=== PATIENT | male | born 2000 | race Caucasian/White ===

== ENCOUNTER 2024-11-22 12:16 | Outpatient (AMB) | payer OTHER, SELFPAY ==
--- OUTSIDE RECORDS SUMMARY | 2024-11-22 12:20 | XMS_ITS | Encounter Summary ---
Author Organization [facility] Address [address] [place] [address] Phone Care Team Providers Care Cut Press Operator Name Role Phone Jossie Shoemaker DO Primary Care Provider [phone] Encounter Details Date Type Department Care Team (Late st Contact Info) Description 05/22/2015 Documentation [facility] [address] [place], [place] [phone] Family Medicine, Physician [address] [place] [address] Social History Tobacco Use Types Packs/Day Years Used Date Smoking Tobacco: Never Assessed Sex and Gender Information Value Date Recorded Sex Assigned at Not on file Legal Sex Male 5:10 PM EDT Gender Identity Male 01/27/2023 1:24 PM EST Sexual Orientation Straight 01/27/2023 1: 24 PM EST documented as of this encounter Plan of Treatment Not on file documented as of this encounter Visit Diagnoses Not on filedocumented in this encounter Care Teams Cut Press Operator Relationship Specialty Start Date End Date Jossie Shoemaker DO [address] [place] [address] PCP - General 09/20/16 06/05/23 documented as of this encounter
--- OUTSIDE RECORDS SUMMARY | 2024-11-22 12:20 | XMS_ITS | Encounter Summary ---
Author Organization [facility] Address [address] [place] [address] Phone Care Team Providers Care Superintendent Transmission Name Role Phone Jossie Shoemaker DO Primary Care Provider [phone] Encounter Details Date Type Department Care Team (Late st Contact Info) Description 09/13/2015 Documentation [facility] [place] [facility] [address] [place], [place] [id number] Family Medicine, Physician [address] [place] [address] Social History Tobacco Use Types Packs/Day Years [...] on filedocumented in this encounter Care Teams Superintendent Transmission Relationship Specialty Start Date End Date Jossie Shoemaker DO [address] [place] [address] PCP - General 09/20/16 06/05/23 documented as of this encounter
--- OUTSIDE RECORDS SUMMARY | 2024-11-22 12:20 | XMS_ITS | Encounter Summary ---
Author Organization [facility] Address [address] [place] [address] Phone Care Team Providers Care Medical And Scientific Illustrator Name Role Phone Jossie Shoemaker DO Primary Care Provider [phone] Encounter Details Date Type Department Care Team (Late st Contact Info) Description 09/13/2015 Documentation [facility] [place] [address] [place], [place] [id number] Family Medicine, Physician [address] [place] [address] Social History Tobacco Use Types Packs/Day Years [...] on filedocumented in this encounter Care Teams Medical And Scientific Illustrator Relationship Specialty Start Date End Date Jossie Shoemaker DO [address] [place] [address] PCP - General 09/20/16 06/05/23 documented as of this encounter
--- OUTSIDE RECORDS SUMMARY | 2024-11-22 12:20 | XMS_ITS | Encounter Summary ---
Author Organization [facility] Address [address] [place] [address] Phone Care Team Providers Care Geriatric Nursing Assistant Name Role Phone Jossie Shoemaker DO Primary Care Provider [phone] Encounter Details Date Type Department Care Team (Late st Contact Info) Description 07/26/2016 Documentation [facility] [place] Family Medicine [address] [place], [place] [phone] Family Medicine, Physician [address] [place] [address] Social History Tobacco Use Types Packs/Day Years Used Date Smoking Tobacco: Never Comments:Never smoker Sex and Gender Information Value Date Recorded Sex Assigned at Not on file Legal Sex Male 5:10 PM EDT Gender Identity Male 01/27/2023 1:24 PM EST Sexual Orientation Straight 01/27/2023 1: 24 PM EST documented as of this encounter Plan of Treatment Not on file documented as of this encounter Visit Diagnoses Not on filedocumented in this encounter Care Teams Geriatric Nursing Assistant Relationship Specialty Start Date End Date Jossie Shoemaker DO 150 [place] [address] PCP - General 09/20/16 06/05/23 documented as of this encounter
--- OUTSIDE RECORDS SUMMARY | 2024-11-22 12:20 | XMS_ITS | Encounter Summary ---
Author Organization [facility] Address [address] [place] [address] Phone Care Team Providers Care Shrimp Trawler Name Role Phone Jossie Shoemaker DO Primary Care Provider [phone] Encounter Details Date Type Department Care Team (Late st Contact Info) Description 09/11/2015 Documentation [facility] [place] Family Medicine [address] [place], [place] [phone] Family Medicine, Physician [address] [place] [address] Social History Tobacco Use Types Packs/Day Years [...] on filedocumented in this encounter Care Teams Shrimp Trawler Relationship Specialty Start Date End Date Jossie Shoemaker DO 150 [place] [address] PCP - General 09/20/16 06/05/23 documented as of this encounter
--- OUTSIDE RECORDS SUMMARY | 2024-11-22 12:20 | XMS_ITS | Encounter Summary ---
Author Organization [facility] Address [address] [place] [address] Phone Care Team Providers Care Injection Mold Technician Name Role Phone Jossie Shoemaker DO Primary Care Provider [phone] Encounter Details Date Type Department Care Team (Late st Contact Info) Description 07/25/2016 Documentation [facility] [place] Family Medicine [address] [place], [place] [phone] Family Medicine, Physician [address] [place] [address] Social History Tobacco Use Types Packs/Day Years [...] on filedocumented in this encounter Care Teams Injection Mold Technician Relationship Specialty Start Date End Date Jossie Shoemaker DO [address] [facility] [place] [address] PCP - General 09/20/16 06/05/23 documented as of this encounter
--- OUTSIDE RECORDS SUMMARY | 2024-11-22 12:20 | XMS_ITS | Encounter Summary ---
Author Organization [facility] Address [address] [place] [address] Phone Care Team Providers Care Caramel Cutter Helper Name Role Phone Jossie Shoemaker DO Primary Care Provider [phone] Encounter Details Date Type Department Care Team (Late st Contact Info) Description 07/18/2011 Documentation [facility] [place] Family Medicine [address] [place], [place] [address] Family Medicine, Physician [address] [place] [address] Social History Tobacco Use Types Packs/Day Years [...] on filedocumented in this encounter Care Teams Caramel Cutter Helper Relationship Specialty Start Date End Date Jossie Shoemaker DO [address] [facility] [place] [address] PCP - General 09/20/16 06/05/23 documented as of this encounter
--- OUTSIDE RECORDS SUMMARY | 2024-11-22 12:20 | XMS_ITS | Encounter Summary ---
Author Organization [facility] Address [address] [place] [address] Phone Care Team Providers Care Engineering Executive Name Role Phone Jossie Shoemaker DO Primary Care Provider [phone] Encounter Details Date Type Department Care Team (Late st Contact Info) Description 02/21/2014 Documentation [facility] [place] Family Medicine [address] [place], [place] [phone] Family Medicine, Physician [address] [place] [address] Social History Tobacco Use Types Packs/Day Years [...] on filedocumented in this encounter Care Teams Engineering Executive Relationship Specialty Start Date End Date Jossie Shoemaker DO [address] [facility] [place] [address] PCP - General 09/20/16 06/05/23 documented as of this encounter
--- OUTSIDE RECORDS SUMMARY | 2024-11-22 12:20 | XMS_ITS | Encounter Summary ---
Author Organization [facility] Address [address] [place] [address] Phone Care Team Providers Care Staff Software Engineer Name Role Phone Jossie Shoemaker DO Primary Care Provider [phone] Encounter Details Date Type Department Care Team (Late st Contact Info) Description 05/22/2015 Documentation [facility] [place] [address] [place], [place] [phone] Family Medicine, Physician [address] [place] [address] Social History Tobacco Use Types Packs/Day Years [...] on filedocumented in this encounter Care Teams Staff Software Engineer Relationship Specialty Start Date End Date Jossie Shoemaker DO [address] [place] [address] PCP - General 09/20/16 06/05/23 documented as of this encounter
--- OUTSIDE RECORDS SUMMARY | 2024-11-22 12:20 | XMS_ITS | Encounter Summary ---
Author Organization [facility] Address [address] [place] [address] Phone Care Team Providers Care Universal Grinder Set Up Operator Name Role Phone Jossie Shoemaker DO Primary Care Provider [phone] Encounter Details Date Type Department Care Team (Late st Contact Info) Description 02/22/2014 Documentation [facility] [place] [address] [place], [place] [phone] Family Medicine, Physician [address] [place] [address] Social History Tobacco Use Types Packs/Day Years [...] on filedocumented in this encounter Care Teams Universal Grinder Set Up Operator Relationship Specialty Start Date End Date Jossie Shoemaker DO [address] [place] [address] PCP - General 09/20/16 06/05/23 documented as of this encounter
--- OUTSIDE RECORDS SUMMARY | 2024-11-22 12:20 | XMS_ITS | Encounter Summary ---
Author Organization [facility] Address [address] [place] [address] Phone Care Team Providers Care Manager Rn Case Name Role Phone Jossie Shoemaker DO Primary Care Provider [phone] Encounter Details Date Type Department Care Team (Late st Contact Info) Description 07/25/2016 Documentation [facility] [place] Family Medicine [address] [place], [place] [phone] Family Medicine, Physician [address] [place] [address] Social History Tobacco Use Types Packs/Day Years [...] on filedocumented in this encounter Care Teams Manager Rn Case Relationship Specialty Start Date End Date Jossie Shoemaker DO [address] [facility] [place] [address] PCP - General 09/20/16 06/05/23 documented as of this encounter
--- OUTSIDE RECORDS SUMMARY | 2024-11-22 12:20 | XMS_ITS | Encounter Summary ---
Author Organization [facility] Address [address] [place] [address] Phone Care Team Providers Care Crusher Loader Equipment Operator Name Role Phone Jossie Shoemaker DO Primary Care Provider [phone] Encounter Details Date Type Department Care Team (Late st Contact Info) Description 07/18/2011 Documentation [facility] [place] [address] [place], [place] [phone] Family Medicine, Physician [address] [place] [address] Social History Tobacco Use Types Packs/Day Years [...] on filedocumented in this encounter Care Teams Crusher Loader Equipment Operator Relationship Specialty Start Date End Date Jossie Shoemaker DO [address] [place] [address] PCP - General 09/20/16 06/05/23 documented as of this encounter
--- OUTSIDE RECORDS SUMMARY | 2024-11-22 12:20 | XMS_ITS | Clinical Summary ---
Author Organization [facility] Address [address] [place] [address] Care Team Providers Care Sourcing Analyst Name Role Phone Jossie Shoemaker DO Primary Care Provider [phone] Allergies No known active allergies Medications No known medications Active Problems No known active problems Immunizations Immunization Administration Dates Next Due DTaP 5 07/10/2006, 5,2002,2002, 2002 HPV 9-Valent 12/21/2017,07/24/2016 Hep A, 2 Dose 05/19/2015 Hep B, Adolescent or Pediatric 06/12/2004,2002,2002 Hepatitis A 02/21/2014 Hib (PRP-T) 2002,2002,2002 IPV 07/10/2006,07/05/2004,2002 ,2002 MMR 05/19/2003 MMRV 07/10/2006 Meningococcal MCV4P 12/23/2018,02/21/2014 Pneumococcal Conjugate 7-Valent 06/12/2004,11/11,2002,2002 Tdap 02/21/2014 Varicella 07/10/2006,05/19/2003 Family History Relation Status Comments Father Alive Mother Alive Social History Tobacco Use Types Packs/Day Years Used Date Smoking Tobacco: Never Smokeless Tobacco: Never Alcohol Use Standard Drinks/Week Comments Never 0 (1 standard drink = 0.6 oz pur e alcohol) PHQ-2 Answer Date Recorded Depression Risk (PHQ2) Score 0 Sex and Gender Information Value Date Recorded Sex Assigned at Not on file Legal Sex Male 6:31 PM MST Gender Identity Not on file Sexual Orientation Not on file Last Filed Vital Signs Vital Sign Reading Time Taken Comments Blood Pressure 109/53 07/26/2021 11:14 AM EDT Pulse 66 07/26/2021 11:14 AM EDT Temperature 36.2 C (97.1 F) 07/26/2021 11:14 AM EDT Respiratory Rate - - Oxygen Saturation 99% 07/26/2021 11:14 AM EDT Inhaled Oxygen Concentration - - Weight 87.3 kg (192 lb 6.4 oz) 07/26/2021 11:14 AM EDT Height 169.4 cm (5' 6.69 ) 07/26/2021 11:14 AM E DT Body Mass Index 30.41 07/26/2021 11:14 AM EDT Plan of Treatment Health Maintenance Due Date Last Done Comments Hepatitis C Screening 2002 PHQ-9 Depression Screen 2014 Complete Annual HRA 2020 MADDISON-7 Anxiety Screen 2020 Annual Preventive Exam 07/26/2022 07/26/2021 DTaP,Tdap,and Td Vaccines (7 - Td or Tdap) 02/22/2024 02/21/2014, 07/10/2006, 07/05/2004, Additional history exists COVID-19 Vaccine (2023-2 5 season) 2024 Influenza Vaccine (#1) 2024 RSV Vaccine (SCDM) (1 - 1-do se 75+ series) 2077 HPV Vaccines Completed 12/21/2017, 07/24/2016 Meningococcal Vaccine Completed 12/23/2018, 015 Insurance [employer] Care Teams Sourcing Analyst Relationship Specialty Start Date End Date Jossie Shoemaker DO [address] [place] [address] PCP - General Pediatrics 07/26/21
--- OUTSIDE RECORDS SUMMARY | 2024-11-22 12:20 | XMS_ITS | Encounter Summary ---
Author Organization [facility] Address [address] [place] [address] Phone Care Team Providers Care Home Office Claim Specialist Name Role Phone Jossie Shoemaker DO Primary Care Provider [phone] Encounter Details Date Type Department Care Team (Late st Contact Info) Description 12/07/2012 Documentation [facility] Family Medicine [address] [place], [place] [phone] Family Medicine, Physician [address] [place] [address] Social History Tobacco Use Types Packs/Day Years [...] on filedocumented in this encounter Care Teams Home Office Claim Specialist Relationship Specialty Start Date End Date Jossie Shoemaker DO 150 [place] [address] PCP - General 09/20/16 06/05/23 documented as of this encounter
--- OUTSIDE RECORDS SUMMARY | 2024-11-22 12:20 | XMS_ITS | Clinical Summary ---
Author Organization [facility] Address [address] [place] [address] Phone Care Team Providers Care Saute Chef Name Role Phone Unavailable Primary Care Provider Unavailabl e Allergies No known active allergies Medications No known medications Active Problems Problem Noted Date Diagnosed Date Influenza vaccine refused 12/21/2017 Overview (01/27/2023): Patient declined 01/27/2023 Assessment & Plan (04/10/2020 9:52 AM EST): Pt came by himself today-per dad refusal of flu vaccine Resolved Problems Problem Noted Date Diagnosed Date Resolved Date Sleep disorder 07/19/2022 01/27/2023 Assessment & Plan (07/19/2022 4:44 PM EDT): 1. Start with your present bedtime, but go to bed 5-10 minutes earlier every night until you are going to bed around 11:30 2. Turn off electronics an hour before bed 3. Take melatonin 3 mg around 7pm. 4. NO NAPS 5. Get fresh air and exercise 6. If you waken at night get up and do something boring for 15 minutes. 7. Keep things very dark and quiet in bedroom, which should be only for sleep. Immunizations Immunization Administration Dates Next Due DTaP 5 07/10/2006, 5,2002, 003,2002 HPV Vaccine 9 Valent 12/21/2017,07/24/2016 Hep A, ped/adol 05/19/2015,02/21/2014 Hep B, ped/adol 06/12/2004,2002,2002 Hib (HbOC) 06/12/2004 Hib (PRP-T) 2002,2002,2002 IPV 07/10/2006, 5,2002, 003 MMR 05/19/2003 MMRV 07/10/2006 Meningococcal Conj (Menactra) MCV4P 12/23/2018,0 02/21/2014 Pneumococcal Conjugate 06/12/2004,2002,2002, 003 Tdap 02/21/2014 Varicella 05/19/2003 Family History Medical History Relation Name Comments Hyperlipidemia Father Schuyler Hypertension Maternal Grandfather Lalo's thyroiditis Maternal Grandmother No Known Problems Mother Anat Relation Name Status Comments Father Schuyler Alive Father: Hyperli pidemia Maternal Grandfather Alive Materna l grandfather: Hypertension Maternal Grandmother Alive Materna l grandmother: Cancer, thyroid Mother Anat Alive Mother: Alive a nd well Other Family history of Migraines Paternal Grandfather Paternal Grandmother Alive Social History Tobacco Use Types Packs/Day Years Used Date Smoking Tobacco: Never Comments:Never smoker Alcohol Use Standard Drinks/Week Comments No 0 (1 standard drink = 0.6 oz pur e alcohol) Hunger/Food Answer Date Recorded In the last 12 months, did y ou or your family ever eat less than you felt you should because there wasn't enough money for food? No 01/27/2023 Stable Housing Answer Date Recorded Are you worried that in the next 2 months you may not have stable housing? No 01/27/2023 Transportation Concerns Answer Date Rec orded In the last 12 months, have you or your family ever had to go without healthcare because you didn't have a way to get there? No 01/27/2023 Hazards in Home Answer Date Recorded Think about the place you li ve. Do you have problems with any of the following? Pests (mice or roaches), mold, no/not working smoke detectors, water leaks, no window guards. No 2022 Financing Utilities Answer Date Recorde d In the last 12 months, has t he electric, gas, oil, or water company threatened to shut off your services in your home? No 01/27/2023 Safety at Home Answer Date Recorded Are you or your family worried about feeling saf e in your home? No 01/27/2023 Outside Support Answer Date Recorded Do you feel that you need mo re support from other people or programs to help you care for yourself or your family? No 01/27/2023 Understanding Health Concerns Answer Da te Recorded Do you need help understandi ng your or your child's healthcare needs (diagnosis, medications, plan, etc.)? No 01/27/2023 Financing Health Concerns Answer Date R ecorded In the last 12 months, was t here a time when your child needed to see a doctor or get medications or supplies but could not because of cost? No 01/27/2023 Missing School or Work Answer Date Esau rded Did you or your child miss s chool or work because of a health problem that could have been avoided? No 01/27/2023 Sex and Gender Information Value Date Recorded Sex Assigned at Not on file Legal Sex Male 5:10 PM EDT Gender Identity Male 01/27/2023 1:24 PM EST Sexual Orientation Straight 01/27/2023 1: 24 PM EST Last Filed Vital Signs Vital Sign Reading Time Taken Comments Blood Pressure 120/78 01/27/2023 1:12 PM EST Pulse 76 01/27/2023 1:12 PM EST Temperature 36.4 C (97.5 F) 01/27/2023 1:12 PM EST Respiratory Rate - - Oxygen Saturation - - Inhaled Oxygen Concentration - - Weight 77 kg (169 lb 12.8 oz) 01/27/2023 1:12 PM EST Height 170.2 cm (5' 7 ) 01/27/2023 1:12 PM EST Body Mass Index 26.59 01/27/2023 1:12 PM EST Plan of Treatment Health Maintenance Due Date Last Done Comments Men B Vaccine (1 of 2 - Standard) 2018 DTaP,Tdap,and Td Vaccines (7 - Td or Tdap) 02/22/2024 02/21/2014, 07/10/2006, 07/05/2004, Additional history exists Influenza Vaccines (#1) 2024 COVID-19 Vaccine (2 - 2024-2 6 season) 2024 10/02/2020 HIB Vaccines Completed 06/12/2004, 03/2002, 2002, Additional history exists Hepatitis B Vaccines Completed 06/12/2004, 2002, 2002 Pneumococcal Vaccine Completed 06/12/2004, 2002, 2002, Additional history exists IPV Vaccines Completed 07/10/2006, 06/11, 2002, Additional history exists MMR Vaccines Completed 07/10/2006, 05/19/2003 Varicella Vaccines Completed 07/10/2006, 0 07/10/2006, 05/19/2003 Hepatitis A Vaccines Completed 05/19/2015, 02/21/19 15 HPV Vaccines Completed 12/21/2017, 07/24/2016 Meningococcal Vaccine Completed 12/23/2018, 015 Insurance [facility] [place] [phone]
--- OUTSIDE RECORDS SUMMARY | 2024-11-22 12:20 | XMS_ITS | Encounter Summary ---
Author Organization [facility] Address [address] [place] [address] Phone Care Team Providers Care Digital Media Director Name Role Phone Jossie Shoemaker DO Primary Care Provider [phone] Encounter Details Date Type Department Care Team (Late st Contact Info) Description 05/22/2015 Documentation [facility] [place] Family Medicine [address] [place], [place] [id number] Family Medicine, Physician [address] [place] [address] Social History Tobacco Use Types Packs/Day Years [...] on filedocumented in this encounter Care Teams Digital Media Director Relationship Specialty Start Date End Date Jossie Shoemaker DO [address] [place] [address] PCP - General 09/20/16 06/05/23 documented as of this encounter
--- OUTSIDE RECORDS SUMMARY | 2024-11-22 12:20 | XMS_ITS | Encounter Summary ---
Author Organization [facility] Address [address] [place] [address] Phone Care Team Providers Care Elementary Supervisor Name Role Phone Jossie Shoemaker DO Primary Care Provider [phone] Encounter Details Date Type Department Care Team (Late st Contact Info) Description 08/26/2012 Documentation [facility] [place] [address] [place], [place] [phone] Family Medicine, Physician [address] [place] [address] Social History Tobacco Use Types Packs/Day Years [...] on filedocumented in this encounter Care Teams Elementary Supervisor Relationship Specialty Start Date End Date Jossie Shoemaker DO [address] [facility] [place] [address] PCP - General 09/20/16 06/05/23 documented as of this encounter
--- OUTSIDE RECORDS SUMMARY | 2024-11-22 12:20 | XMS_ITS | Encounter Summary ---
Author Organization [facility] Address [address] [place] [address] Phone Care Team Providers Care Concrete Form Setter Name Role Phone Jossie Shoemaker DO Primary Care Provider [phone] Encounter Details Date Type Department Care Team (Late st Contact Info) Description 09/26/[address] [facility] [address] [place] [address] Social History Tobacco Use Types Packs/Day Years [...] on filedocumented in this encounter Care Teams Concrete Form Setter Relationship Specialty Start Date End Date Jossie Shoemaker DO [address] [place] [address] PCP - General 09/20/16 06/05/23 documented as of this encounter
[2024-11-22 12:22] VITALS: BP 122/76; PULSE 63; RESP 18; TEMP 37; O2SAT 98; BMI 33.8
--- NOTE | 2024-11-22 12:22 | A.OFFPC_ITS ---
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 He is transitioning from pediatric to adult care, with his last medical visit approximately two years ago. He denies any chest pain, shortness of breath, abdominal pain, blood in stool, constipation, diarrhea, suicidal ideation, or homicidal ideation. The patient reports being physically active and doing well overall. 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 - Physical activity: Reports being fairl y active Review of Systems - Cardiovascular: Denies chest pain - Respiratory: Denies shortness of breat h - Gastrointestinal: Denies abdominal sameer n, blood in stool, constipation, diarrhea - Psychiatric: Denies suicidal ideation, homicidal ideation Physical Exam General: Cooperative, healthy appearing, comfortable, no acute distress and well developed Orientation: Patient oriented x3 Limitations: No limitations Head: Normal to inspection Ears: Hearing grossly normal bilaterally Nose: Normal external nose present Face and sinus: Normal facial exam Eyes: Appearance normal, both eyes and all related structures Neck: Normal visual inspection and Yes full ROM Respiratory: Normal respiratory effort and able to speak in complete sentences. Clear to auscultation bilaterally Cardiovascular: Regular rate and rhythm. Normal S1 and S2 GI: Normal to inspection. Soft to palpation and nontender : Testicles without masses/lesions and no hernias appreciated Skin: No rashes or lesions noted Neuro: Patient oriented x3 Extremities: Normal to inspection Results Plan 1. physical exam Discussion Notes I discussed with the patient the importance of transitioning to adult care and the need for regular health maintenance, including obtaining fasting labs in the near future. Patient Instructions - Schedule and complete fasting labs as discussed. [facility] Surgical History No pertinent past surgical history Family History Father No problems noted. Mother No problems noted. Social History Housing: Apartment Patient Tobacco Use Status: Never used Tobacco e-Cigarette/Vaping Use: Never Used service: No Current occupational status: student Cognitive needs: No Hearing needs: No Vision needs: Yes Questionnaire PHQ-9 Over the last 2 weeks, how often have you been bothered by any of the following problems? 1. Little interest or pleasure in doing things: not at all 2. Feeling down, depressed, or hopeless: not at all 3. Trouble falling or staying asleep, or sleeping too much: not at all 4. Feeling tired or having little energy: not at all 5. Poor appetite or overeating: not at all 6. Feeling bad about yourself - or that you are a failure or have let yourself or your family down: not at all 7. Trouble concentrating on things, such as reading the newspaper or watching television: not at all 8. Moving or speaking so slowly that other people could have noticed. Or the opposite - being so fidgety or restless that you have been moving around a lot more than usual: not at all 9. Thoughts that you would be better off or of hurting yourself in some way: not at all Total score: 0 Depression Screening Interpretation: Negative Depression Screening Done: Yes 01448 - PHQ-9 Billing: Yes Source: Developed by Drs. Nain Peterson, Luz Cervantes, Benjie Shannon and colleagues, with an educational khanh from [employer]. Thrive Questionnaire Date Thrive assessed: 11/22/24 I am a: Patient What is your living situation today?: I have a steady place to live Within the past 12 months, did the food you bought not last and you didn't have the money to get more?: Never true Within the past 12 months, did you worry whether your food would run out before you got money to buy more?: Never true Do you have trouble paying for medicines?: No Do you have trouble getting transportation to medical appointments?: No Do you have trouble paying your heating and electricity bill?: No Do you have trouble taking care of your child, family member or friend?: No Do you have trouble with day-to-day activities such as bathing, preparing meals, shopping, managing finances, etc.?: No Are you currently unemployed and looking for a job?: No Are you interested in more education?: No Please select the resources that you would like help with: None Currently or been in a relationship where the following occur: No concerns reported THRIVE Score: 0 AUDIT C Alcohol Use Questionnaire (AUDIT-C) 1. How often do you have a drink containing alcohol?: 2-4 times a month 2. How many drinks containing alcohol do you have on a typical day when you are drinking?: 3 or 4 3. How often do you have six or more drinks on one occasion?: Less than monthly Total Score: 4 Score Reviewed/Action Taken: Yes MADDISON-7 AMB Questionnaire MADDISON-7 Date MADDISON - 7 assessed: 11/22/24 Feeling nervous, anxious, or on edge: 0 = Not at all Not being able to stop or control worryin = Not at all Worrying too much about different things: 0 = Not at all Trouble relaxin = Not at all Being so restless that it is hard to sit still: 0 = Not at all Becoming easily annoyed or irritable: 0 = Not at all Feeling afraid as if something awful might happen: 0 = Not at all Total MADDISON-7 score (0-4 normal; 5-9 mild; 10-14 moderate; 15-21 severe): 0 Source: Developed by Drs. Nain Peterson, Luz Cervantes, Benjie Shannon and colleagues, with an educational khanh from [employer] MADDISON-7 Assessment Billing MADDISON-7 Assessment Tool: MADDISON-7 Assessment 33896 Physical exam (Primary Care) Vital Signs: Last Vital Signs Temp 98.6 F 11/22/24 12:22 Pulse 63 11/22/24 12:22 Resp 18 11/22/24 12:22 BP 122/76 11/22/24 12:22 Pulse Ox 98 11/22/24 12:22 Oxygen Delivery Method Room Air 11/22/24 12:22 BMI result Body Mass Index 33.8 Tobacco/Smoking Status: Tobacco use Status Tobacco use date assessed 11/22/24 11/22/24 12:29 Patient Tobacco Use Status Never used Tobacco 11/22/24 12:29 e-Cigarette/Vaping Use Never Used 11/22/24 12:29 PHQ-9: PHQ-9 Score PHQ-9: Total score 0 11/22/24 12:30 Depression Screening Interpretation: Negative Thrive Assessment: Date of Thrive Assessment Date Thrive assessed 11/22/24 11/22/24 12:29 Currently or been in a relationship where the following occur: No concerns reported Coding Level of Care Code Est Pt Prev Care [id number](64241) Diagnoses Physical exam Z00. Additional Codes MADDISON-7 Assessment Billing - MADDISON-7 Assessment Tool: MADDISON-7 Assessment 06353 ([id number]) PHQ-9 - 00785 - PHQ-9 Billing: Yes ([id number]) Assessment & Plan Assessment & Plan (1) Physical exam: Code(s): Z00.00 - Encounter for general adult medical examination without abnormal findings Category: Medical Plan . Orders: Orders Comprehensive [place]. Panel Fast Today Z00.00 - Encounter for general adult medical examination without abnormal findings UA CC w/rflx Micro + Cult Today Z00.00 - Encounter for general adult medical examination without abnormal findings Complete Blood Count Auto Diff Today Z00.00 - Encounter for general adult medical examination without abnormal findings TSH reflex Free T4 Today Z00.00 - Encounter for general adult medical examination without abnormal findings Lipid Panel Today Z00.00 - Encounter for general adult medical examination without abnormal findings
== END 2024-11-22 13:00 | disposition home or self-care (01) ==
LOC: HO.HMCC 12:17
PROVIDERS: PCP Nurse Practitioner Family; Visit Provider Nurse Practitioner Family
DX: Z00.00 Encounter for general adult medical examination without abnormal findings (principal)

== ENCOUNTER → 2024-11-22 12:16 | Outpatient (BNVA) | payer OTHER, SELFPAY | PROVIDERS: PCP Nurse Practitioner Family; Visit Provider Nurse Practitioner Family | DX: Z00.00 Encounter for general adult medical examination without abnormal findings (principal); Z13.31 Encounter for screening for depression; Z13.39 Encounter for screening examination for other mental health and behavioral disorders | CPT/HCPCS: 96127 ==